=== PATIENT | female | born 1995 | race Caucasian/White ===

== ENCOUNTER → 2017-01-09 | Outpatient (CLI) | payer SELFPAY ==
[2016-04-08 15:21] VITALS: BP 156/77
--- NOTE | 2017-01-09 14:08 | US ---
History: Pelvic pain Study: Transabdominal ultrasound of the pelvis Findings: Uterus measures 4.08 x 4.8 x 4.7 cm without mass. The endometrium measures over 2 cm transv erse with an is echogenic. mm thickness. There is moderate free fluid in the cul-de-sac. The ovaries are normal in size. There is a 1.7 x 1.8 cm cyst in the right ovary. Impression: 1. Almost 2 cm right ovarian cyst 2. Free fluid in the cul-de-sac with hyperechoic distended endometrium this probably all physiologic related to the menstrual cycle. Reported By:
== END ==
LOC: RAD 12:39
PROVIDERS: ATTEND Obstetrics & Gynecology Obstetrics
DX: R10.2 Pelvic and perineal pain (principal); N83.291 Other ovarian cyst, right side
CPT/HCPCS: 76856